=== PATIENT | female | born 1955 | race Asian ===

== ENCOUNTER → 2021-05-27 | Outpatient (CLI) | payer OTHER ==
[~2021-05-27] MED LIST: HYDCHL25; IBUP600; LEVSOD100; METF500; SERT50
== END ==
LOC: LAB SHORT 09:26
DX: E11.22 Type 2 diabetes mellitus with diabetic chronic kidney disease (principal); I12.9 Hypertensive chronic kidney disease with stage 1 through stage 4 chronic kidney disease, or unspecified chronic kidney disease; N18.9 Chronic kidney disease, unspecified; E03.4 Atrophy of thyroid (acquired); E78.2 Mixed hyperlipidemia
CPT/HCPCS: 85379

== ENCOUNTER 2022-06-02 14:02 | Emergency (ER) | payer OTHER ==
[~2022-06-02] VITALS: Ht 149.9 cm; Wt 89.8 kg
[2022-06-02] MEDS ORDERED: Percocet 5-3251 EACH PO (17:02)
== END 2022-06-02 17:30 | disposition home or self-care (01) ==
LOC: ER 14:02
DX: S43.014A Anterior dislocation of right humerus, initial encounter (principal); S43.034A Inferior dislocation of right humerus, initial encounter; W19.XXXA Unspecified fall, initial encounter; Z88.8 Allergy status to other drugs, medicaments and biological substances; Z79.890 Hormone replacement therapy; Z79.84 Long term (current) use of oral hypoglycemic drugs; Z79.899 Other long term (current) drug therapy
CPT/HCPCS: 23650; 73030; 96374-59; 96375-59; 99284-25; J1885; J2704; J3010; J7030

== ENCOUNTER 2024-04-29 12:08 | Day surgery (SDC) | payer MEDICARE ==
[~2024-04-29] VITALS: Ht 149.9 cm; Wt 86.3 kg
[~2024-04-29 12:08] MED LIST changes: +Lactated Ringer's 1,000 ML IV ONE; +Lidocaine HCl 2% 10 ML SDA ONE; +Percocet 5-3251 EACH PO
[2024-04-29] MEDS ORDERED: CeFAZolin Sodium 2,000 MG VIAL ONE (12:29)
[2024-04-29] MEDS ORDERED: ATOR10 PO (12:46)
[2024-04-29] MEDS ORDERED: GLIP5 PO (12:47)
[2024-04-29] MEDS ORDERED: Lisinopril2.5 MG PO (12:48)
[2024-04-29] MEDS ORDERED: LEVOTHYROXINE125 MC9 PO (12:48)
[2024-04-29] MEDS ORDERED: FURO20 PO (12:49)
[2024-04-29] MEDS ORDERED: Lactated Ringer's 1,000 ML IV ONE (13:01)
[2024-04-29] MEDS ORDERED: propofoL 50 ML IV ONE (13:24)
[2024-04-29] MEDS ORDERED: Dexamethasone Sod Phos 10 MG/ML 1ML VIAL ONE (13:47)
[2024-04-29] MEDS ORDERED: Ketorolac Tromethamine 30mg Vial ONE (13:47)
[2024-04-29] MEDS ORDERED: Ondansetron HCl 2 MG / ML 2ML Vial ONE (13:47)
[2024-04-29] MEDS ORDERED: Bupivacaine 0.5% HCl 5 MG/ML 30MLVIAL INJ ONE (13:57)
[2024-04-29] MEDS ORDERED: EPINEPhrine HCl 1 MG/ML 1ML Amp XX ONE (13:57)
--- NOTE | 2024-04-29 14:02 | NUR ---
04/29/24 1402 Jewell Roberts 30 ML BUPIVACAINE 0.5% MIXED AND VERIFIED WITH 0.15ML OF EPI (1MG/ML) TO MAKE BUPIVACAINE 0.5% WITH EPI 1:200,000 FOR INJECTION AT THE OPSITE.
[2024-04-29] MEDS ORDERED: Phenylephrine HCl 100 MCG/ML-NS 10MLSYR (1MG/10ML) ONE (14:03)
[2024-04-29 14:43] VITALS: BP 137/53
== END 2024-04-29 15:28 | disposition home or self-care (01) ==
LOC: ORSCSDS 12:08
PROVIDERS: Podiatrist Foot & Ankle Surgery
PROC: 0JBQ0ZZ Excision of Right Foot Subcutaneous Tissue and Fascia, Open Approach (ICD-10-PCS; principal; 2024-04-29 13:30)
DX: L72.0 Epidermal cyst (principal); M20.11 Hallux valgus (acquired), right foot; E11.42 Type 2 diabetes mellitus with diabetic polyneuropathy; E11.22 Type 2 diabetes mellitus with diabetic chronic kidney disease; I12.9 Hypertensive chronic kidney disease with stage 1 through stage 4 chronic kidney disease, or unspecified chronic kidney disease; N18.2 Chronic kidney disease, stage 2 (mild); F41.9 Anxiety disorder, unspecified; F32.A Depression, unspecified; E78.5 Hyperlipidemia, unspecified; E03.9 Hypothyroidism, unspecified; E66.9 Obesity, unspecified; Z68.38 Body mass index [BMI] 38.0-38.9, adult; Z79.84 Long term (current) use of oral hypoglycemic drugs; Z79.899 Other long term (current) drug therapy; Z87.891 Personal history of nicotine dependence; I50.9 Heart failure, unspecified
CPT/HCPCS: 82947; 88305; J0171; J0690; J1100; J1885; J2003; J2371; J2405; J2704; J7120